=== PATIENT | male | born 1995 | race Caucasian/White ===

== ENCOUNTER 2020-11-11 11:38 | Emergency (ER) | payer MEDICAID ==
[~2020-11-11] VITALS: Ht 160 cm; Wt 90.0 kg
[2020-11-11] MEDS ORDERED: IBUPROFEN 600MG TABLET PO ONE (15:00)
[2020-11-11 15:25] LABS: CLARITY URINE CLEAR (CLEAR); COLOR URINE YELLOW (YELLOW); KETONES URINE TRACE (NEGATIVE); LEUKOCYTE ESTERASE URINE NEGATIVE (NEGATIVE); NITRITE URINE NEGATIVE (NEGATIVE); OCCULT BLOOD URINE NEGATIVE (NEGATIVE); PH URINE 6.5 (4.5-8.0); PROTEIN URINE NEGATIVE (NEGATIVE); SPECIFIC GRAVITY URINE 1.031 (1.005-1.030)
[2020-11-11] MEDS ORDERED: IBUP-2028 MT (15:44)
[2020-11-11] MEDS ORDERED: POLY17PO3 MT (16:23)
[2020-11-11 16:40] VITALS: BP 101/56
== END 2020-11-11 16:41 | disposition home or self-care (01) ==
LOC: ER 11:38
DX: T14.8XXA Other injury of unspecified body region, initial encounter (principal); X58.XXXA Exposure to other specified factors, initial encounter; Y93.89 Activity, other specified; Y92.89 Other specified places as the place of occurrence of the external cause; Y99.8 Other external cause status
CPT/HCPCS: 81003; 99283